=== PATIENT | female | born 1990 | race Caucasian/White ===

== ENCOUNTER 2018-03-06 15:25 | Emergency (ER) | payer MEDICAID ==
[~2018-03-06] VITALS: Ht 167.6 cm; Wt 76.4 kg
[2018-03-06 16:17] LABS: MONOTEST NEGATIVE (Neg)
[2018-03-06] MEDS ORDERED: IBUP-1984 PO (16:21)
[2018-03-06 16:42] VITALS: BP 131/74
== END 2018-03-06 16:44 | disposition home or self-care (01) ==
LOC: ER 15:26
DX: J02.9 Acute pharyngitis, unspecified (principal); Z79.899 Other long term (current) drug therapy
CPT/HCPCS: 36415; 86308; 87081; 87880; 99284